=== PATIENT | female | born 1990 | race Hispanic/Latino ===

== ENCOUNTER 2022-02-03 10:59 | Inpatient (IN) | payer BC, OTHER ==
[~2022-02-03] VITALS: Ht 157.5 cm; Wt 69.4 kg
[2022-02-03 11:51] LABS: BASOPHILS # (AUTO) 0.1 (0.0-0.1); BASOPHILS % 0.8 % (0.0-1.0); EOSINOPHILS # (AUTO) 0.1 (0.0-0.4); EOSINOPHILS % 1.1 % (0.0-6.0); HEMATOCRIT 45.1 % (34.2-44.1); HEMOGLOBIN 15.8 g/dL (12.0-16.0); LYMPHOCYTES # (AUTO) 3.3 (1.0-3.2); LYMPHOCYTES % 31.4 % (18.0-39.1); MEAN CORPUSCULAR HEMOGLOBIN 31.6 pg (28-32); MEAN CORPUSCULAR VOLUME 90.2 fL (81-99); MONOCYTES # (AUTO) 0.7 (0.2-0.8); MONOCYTES % 6.6 % (4.4-11.3); NEUTROPHILS # (AUTO) 6.4 (2.1-6.9); NEUTROPHILS % 59.9 % (38.7-80.0); PLATELET COUNT 483 x10e3/uL (140-360); RED CELL DISTRIBUTION WIDTH 11.8 % (11.7-14.4)
[2022-02-03 12:16] LABS: ALANINE AMINOTRANSFERASE 20 IU/L (0-55); ALBUMIN 4.7 g/dL (3.5-5.0); ALBUMIN/GLOBULIN RATIO 1.2 (0.8-2.0); ALKALINE PHOSPHATASE 63 IU/L (40-150); ANION GAP 16.4 mmol/L (8-16); BLOOD UREA NITROGEN 7 mg/dL (7-26); BUN/CREATININE RATIO 9 (6-25); CALCIUM 9.3 mg/dL (8.4-10.2); CARBON DIOXIDE 23 mmol/L (22-29); CHLORIDE 105 mmol/L (98-107); CREATINE KINASE 72 IU/L (29-168); CREATININE, SERUM 0.82 mg/dL (0.57-1.11); GLUCOSE 119 mg/dL (74-118); POTASSIUM 3.4 mmol/L (3.5-5.1); SODIUM 141 mmol/L (136-145)
[2022-02-03] MEDS ORDERED: IOPAMIDOL 370 MG/ML 100 ML INFUS..BTL INJ ONE (13:02)
[2022-02-03 13:31] LABS: COLOR,URINE YELLOW (YELLOW)
[2022-02-03 13:32] LABS: CLARITY,URINE CLEAR (CLEAR); KETONES,URINE NEGATIVE (NEGATIVE); LEUKOCYTE ESTERASE ,URINE NEGATIVE (NEGATIVE); NITRITE,URINE NEGATIVE (NEGATIVE); PROTEIN,URINE DIPSTICK NEGATIVE (NEGATIVE); URINE UROBILINOGEN 0.2 mg/dL (0.2 - 1)
[2022-02-03 13:35] LABS: BACTERIA,URINE MODERATE /HPF; EPITHELIAL CELLS,URINE MODERATE /LPF; RBC,URINE 0-5 /HPF (0-5); WBC,URINE (MAN) 0-5 /HPF (0-5)
[2022-02-03 17:00] VITALS: BP 115/66
[2022-02-03] MEDS ORDERED: CHLORHEXIDINE473 ML (17:05)
[2022-02-03] MEDS: SODIUM CHLORIDE 0.9% 1000ML 1,000 ML IV SCH ×2 (18:18→22:00)
[2022-02-03] MEDS ORDERED: ONDANSETRON HCL INJ 2MG/ML 2ML 2 MG/ML VIAL IV PRN (19:30)
[2022-02-03] MEDS ORDERED: METOPROLOL TARTRATE INJ 1 MG/ML VIAL IV PRN (19:30)
[2022-02-03] MEDS ORDERED: ACETAMIN/BUTALBITAL/CAFFEINE TAB PO ONE (19:50)
[2022-02-03 20:00] VITALS: BP 119/72
[2022-02-03] MEDS ORDERED: POTASSIUM CHLORIDE 20 MEQ TAB CR PO ONE (20:00)
[2022-02-03 23:10] VITALS: BP 119/72
[2022-02-04] VITALS (9 sets, daily range): BP systolic 106–130; BP diastolic 61–82
[2022-02-04 04:52] LABS: BASOPHILS # (AUTO) 0.1 (0.0-0.1); BASOPHILS % 0.9 % (0.0-1.0); EOSINOPHILS # (AUTO) 0.1 (0.0-0.4); EOSINOPHILS % 1.4 % (0.0-6.0); HEMATOCRIT 42.2 % (34.2-44.1); HEMOGLOBIN 13.7 g/dL (12.0-16.0); LYMPHOCYTES # (AUTO) 2.6 (1.0-3.2); LYMPHOCYTES % 29.9 % (18.0-39.1); MEAN CORPUSCULAR HEMOGLOBIN 31.5 pg (28-32); MEAN CORPUSCULAR HGB CONC 32.5 g/dL (31-35); MONOCYTES # (AUTO) 0.8 (0.2-0.8); MONOCYTES % 8.9 % (4.4-11.3); NEUTROPHILS # (AUTO) 5.1 (2.1-6.9); NEUTROPHILS % 58.7 % (38.7-80.0); PLATELET COUNT 356 x10e3/uL (140-360); RED BLOOD COUNT 4.35 x10e6/uL (3.6-5.1); RED CELL DISTRIBUTION WIDTH 11.7 % (11.7-14.4)
[2022-02-04 05:10] LABS: ALBUMIN 3.6 g/dL (3.5-5.0); ALBUMIN/GLOBULIN RATIO 1.3 (0.8-2.0); ANION GAP 13.1 mmol/L (8-16); CALCIUM 8.2 mg/dL (8.4-10.2); CREATININE, SERUM 0.77 mg/dL (0.57-1.11); POTASSIUM 4.1 mmol/L (3.5-5.1)
[2022-02-04 05:25] LABS: CHOL/HDL RATIO 2.7 (3.0-3.6); MAGNESIUM 1.9 MG/DL (1.3-2.1); PHOSPHORUS 3.3 MG/DL (2.3-4.7)
[2022-02-04 05:45] LABS: THYROID STIMULATING HORMONE 1.5 uIU/mL (0.350-4.940)
[2022-02-04] MEDS: SODIUM CHLORIDE 0.9% 1000ML 1,000 ML IV SCH ×3 (06:00→19:46)
[2022-02-04] MEDS: ACETAMIN/BUTALBITAL/CAFFEINE TAB PO PRN (08:02)
[2022-02-04] MEDS: FAMOTIDINE 20 MG TAB PO SCH ×2 (08:02→17:07)
[2022-02-04] MEDS: DOCUSATE SODIUM 100 MG CAP PO SCH ×2 (09:00→17:00)
[2022-02-04] MEDS: CHLORHEXIDINE GLUCONATE 0.12% SOLN 473 ML BTL MT SCH ×2 (09:00→18:47)
[2022-02-04 11:23] LABS: INR 0.96; PROTHROMBIN TIME 13.7 seconds (11.9-14.5)
[2022-02-04] MEDS ORDERED: GADOBENATE DIMEGLUMINE 1 ML IV ONE (13:42)
[2022-02-04 15:51] LABS: APPEARANCE,CSF CLEAR (CLEAR); COLOR,CSF COLORLESS (COLORLESS); TUBE NUMBER 3; WHITE BLOOD CELL,CSF 1 cells/uL (0-5)
[2022-02-04] MEDS: ACETAMINOPHEN/CODEINE 300MG - 30MG TAB PO PRN (17:08)
[2022-02-04] MEDS: ONDANSETRON HCL 4 MG ORAL DISINTEGRATING TAB PO PRN (17:14)
[2022-02-05] VITALS (9 sets, daily range): BP systolic 93–131; BP diastolic 55–76
[2022-02-05] MEDS: ONDANSETRON HCL 4 MG ORAL DISINTEGRATING TAB PO PRN ×2 (06:29→17:36)
[2022-02-05] MEDS: ACETAMIN/BUTALBITAL/CAFFEINE TAB PO PRN ×2 (06:29→12:52)
[2022-02-05] MEDS: SODIUM CHLORIDE 0.9% 1000ML 1,000 ML IV SCH ×3 (06:40→14:16)
[2022-02-05] MEDS: FAMOTIDINE 20 MG TAB PO SCH ×2 (08:23→17:36)
[2022-02-05] MEDS: DOCUSATE SODIUM 100 MG CAP PO SCH ×2 (08:23→17:00)
[2022-02-05] MEDS: CHLORHEXIDINE GLUCONATE 0.12% SOLN 473 ML BTL MT SCH ×2 (11:42→17:36)
[2022-02-05] MEDS ORDERED: IOPAMIDOL 370 MG/ML 100 ML INFUS..BTL INJ ONE ×2 (16:53→17:25)
[2022-02-05] MEDS: ACETAMINOPHEN/CODEINE 300MG - 30MG TAB PO PRN (17:36)
[2022-02-05] MEDS: METHYLPREDNISOLONE SOD SUCC 125 MG/2ML VIAL IV SCH (17:37)
[2022-02-05 20:08] LABS: HIV 1&2 AB SCREEN NON-REACTIVE (NONREACTIVE)
[2022-02-05] MEDS: TEMAZEPAM 7.5 MG CAP PO PRN (20:37)
[2022-02-06] VITALS (9 sets, daily range): BP systolic 113–137; BP diastolic 62–86
[2022-02-06] MEDS: METHYLPREDNISOLONE SOD SUCC 125 MG/2ML VIAL IV SCH ×3 (01:37→17:35)
[2022-02-06 06:34] LABS: BASOPHILS % 0.2 % (0.0-1.0); HEMATOCRIT 42.8 % (34.2-44.1); HEMOGLOBIN 14.8 g/dL (12.0-16.0); LYMPHOCYTES # (AUTO) 0.9 (1.0-3.2); LYMPHOCYTES % 8.1 % (18.0-39.1); MEAN CORPUSCULAR HEMOGLOBIN 31.2 pg (28-32); MEAN CORPUSCULAR HGB CONC 34.6 g/dL (31-35); MEAN CORPUSCULAR VOLUME 90.3 fL (81-99); MONOCYTES % 0.2 % (4.4-11.3); NEUTROPHILS # (AUTO) 9.7 (2.1-6.9); NEUTROPHILS % 91.1 % (38.7-80.0); PLATELET COUNT 400 x10e3/uL (140-360); RED BLOOD COUNT 4.74 x10e6/uL (3.6-5.1); RED CELL DISTRIBUTION WIDTH 11.5 % (11.7-14.4)
[2022-02-06 07:11] LABS: ALBUMIN 3.8 g/dL (3.5-5.0); ALBUMIN/GLOBULIN RATIO 1.2 (0.8-2.0); ANION GAP 13.4 mmol/L (8-16); CALCIUM 8.9 mg/dL (8.4-10.2); CREATININE, SERUM 0.69 mg/dL (0.57-1.11); MAGNESIUM 1.6 MG/DL (1.3-2.1); POTASSIUM 3.4 mmol/L (3.5-5.1)
[2022-02-06] MEDS: SODIUM CHLORIDE 0.9% 1000ML 1,000 ML IV SCH ×3 (07:37→13:18)
[2022-02-06] MEDS ORDERED: POTASSIUM CHLORIDE 20 MEQ TAB CR PO ONE ×2 (07:45→10:45)
[2022-02-06] MEDS ORDERED: MAGNESIUM SULFATE 2GM/50ML 50 ML IV ONE (07:45)
[2022-02-06] MEDS: ACETAMINOPHEN/CODEINE 300MG - 30MG TAB PO PRN ×2 (10:16→16:11)
[2022-02-06] MEDS: DOCUSATE SODIUM 100 MG CAP PO SCH ×2 (10:38→17:35)
[2022-02-06] MEDS: CHLORHEXIDINE GLUCONATE 0.12% SOLN 473 ML BTL MT SCH ×2 (10:38→17:35)
[2022-02-06] MEDS: FAMOTIDINE 20 MG TAB PO SCH ×2 (10:39→17:35)
[2022-02-06 12:45] LABS: PLATELET ESTIMATE ADEQUATE; PLATELET MORPHOLOGY COMMENT NORMAL; RBC MORPHOLOGY COMMENT NORMAL
[2022-02-06] MEDS: TEMAZEPAM 7.5 MG CAP PO PRN (21:50)
[2022-02-07] VITALS (7 sets, daily range): BP systolic 110–122; BP diastolic 60–75
[2022-02-07] MEDS: SODIUM CHLORIDE 0.9% 1000ML 1,000 ML IV SCH ×4 (00:01→22:13)
[2022-02-07] MEDS: METHYLPREDNISOLONE SOD SUCC 125 MG/2ML VIAL IV SCH ×4 (00:02→17:45)
[2022-02-07] MEDS: ACETAMINOPHEN/CODEINE 300MG - 30MG TAB PO PRN ×3 (00:22→18:40)
[2022-02-07 05:12] LABS: BASOPHILS % 0.1 % (0.0-1.0); HEMATOCRIT 43.9 % (34.2-44.1); HEMOGLOBIN 14.8 g/dL (12.0-16.0); LYMPHOCYTES # (AUTO) 1.5 (1.0-3.2); LYMPHOCYTES % 5.6 % (18.0-39.1); MEAN CORPUSCULAR HGB CONC 33.7 g/dL (31-35); MONOCYTES # (AUTO) 0.5 (0.2-0.8); MONOCYTES % 1.7 % (4.4-11.3); NEUTROPHILS # (AUTO) 24.9 (2.1-6.9); NEUTROPHILS % 91.9 % (38.7-80.0); PLATELET COUNT 428 x10e3/uL (140-360); RED BLOOD COUNT 4.62 x10e6/uL (3.6-5.1); RED CELL DISTRIBUTION WIDTH 11.7 % (11.7-14.4)
[2022-02-07 05:31] LABS: ANION GAP 11.7 mmol/L (8-16); CALCIUM 8.9 mg/dL (8.4-10.2); CREATININE, SERUM 0.73 mg/dL (0.57-1.11); PHOSPHORUS 3.1 MG/DL (2.3-4.7); POTASSIUM 3.7 mmol/L (3.5-5.1)
[2022-02-07] MEDS: FAMOTIDINE 20 MG TAB PO SCH ×2 (09:00→16:58)
[2022-02-07] MEDS: DOCUSATE SODIUM 100 MG CAP PO SCH ×2 (09:00→16:58)
[2022-02-07] MEDS: CHLORHEXIDINE GLUCONATE 0.12% SOLN 473 ML BTL MT SCH ×2 (09:00→16:58)
[2022-02-07] MEDS ORDERED: POLYETHYLENE GLYCOL 3350 17 GM PACK PO NR (12:00)
[2022-02-07 13:21] LABS: BAND NEUTROPHILS % (MANUAL) 3 %; LYMPHOCYTES % (MANUAL) 4 % (19-48); MONOCYTES % (MANUAL) 1 % (3.4-9.0); NEUTROPHILS % (MANUAL) 92 % (40-74); PLATELET ESTIMATE SLIGHTLY INCREASED; PLATELET MORPHOLOGY COMMENT NORMAL
[2022-02-07 13:22] LABS: HYPOCHROMASIA SLIGHT
[2022-02-07] MEDS: ACETAMINOPHEN 325 MG TAB PO PRN (14:25)
[2022-02-07] MEDS: TEMAZEPAM 7.5 MG CAP PO PRN (22:11)
[2022-02-08] VITALS (8 sets, daily range): BP systolic 120–142; BP diastolic 70–82
[2022-02-08] MEDS: METHYLPREDNISOLONE SOD SUCC 125 MG/2ML VIAL IV SCH ×4 (00:12→17:30)
[2022-02-08] MEDS: ACETAMINOPHEN 325 MG TAB PO PRN (06:08)
[2022-02-08] MEDS: SODIUM CHLORIDE 0.9% 1000ML 1,000 ML IV SCH ×2 (06:11→14:00)
[2022-02-08 06:35] LABS: ANION GAP 14.1 mmol/L (8-16); CALCIUM 7.9 mg/dL (8.4-10.2); CREATININE, SERUM 0.68 mg/dL (0.57-1.11); POTASSIUM 4.1 mmol/L (3.5-5.1)
[2022-02-08 07:27] LABS: BASOPHILS % 0.1 % (0.0-1.0); HEMATOCRIT 42.1 % (34.2-44.1); LYMPHOCYTES # (AUTO) 1.2 (1.0-3.2); MEAN CORPUSCULAR HEMOGLOBIN 31.4 pg (28-32); MEAN CORPUSCULAR HGB CONC 32.8 g/dL (31-35); MEAN CORPUSCULAR VOLUME 95.9 fL (81-99); MONOCYTES # (AUTO) 0.3 (0.2-0.8); MONOCYTES % 1.6 % (4.4-11.3); NEUTROPHILS # (AUTO) 15.8 (2.1-6.9); NEUTROPHILS % 90.8 % (38.7-80.0); RED BLOOD COUNT 4.39 x10e6/uL (3.6-5.1); RED CELL DISTRIBUTION WIDTH 11.9 % (11.7-14.4)
[2022-02-08 07:30] LABS: HEMOGLOBIN 13.8 g/dL (12.0-16.0); PLATELET COUNT 396 x10e3/uL (140-360)
[2022-02-08] MEDS: FAMOTIDINE 20 MG TAB PO SCH ×2 (08:32→16:35)
[2022-02-08] MEDS: DOCUSATE SODIUM 100 MG CAP PO SCH ×2 (08:32→16:35)
[2022-02-08] MEDS: CHLORHEXIDINE GLUCONATE 0.12% SOLN 473 ML BTL MT SCH ×2 (08:33→16:42)
[2022-02-08] MEDS: POLYETHYLENE GLYCOL 3350 17 GM PACK PO PRN (08:43)
[2022-02-08 09:51] LABS: NEUTROPHILS % (MANUAL) 94 % (40-74)
[2022-02-08 09:52] LABS: LYMPHOCYTES % (MANUAL) 3 % (19-48)
[2022-02-08] MEDS: ACETAMINOPHEN/CODEINE 300MG - 30MG TAB PO PRN ×2 (10:24→16:46)
[2022-02-08] MEDS ORDERED: GADOBENATE DIMEGLUMINE 1 ML IV ONE (14:39)
[2022-02-08 16:10] LABS: IGG/ALB RATIO CSF 0.15 (0.00-0.25)
[2022-02-08 16:39] LABS: CSF/SERUM ALBUMIN INDEX 4 (0-8)
[2022-02-09] VITALS: BP 141/75
[2022-02-09] MEDS: METHYLPREDNISOLONE SOD SUCC 125 MG/2ML VIAL IV SCH ×3 (00:30→11:50)
[2022-02-09] MEDS: POLYETHYLENE GLYCOL 3350 17 GM PACK PO PRN (00:37)
[2022-02-09] MEDS: SODIUM CHLORIDE 0.9% 1000ML 1,000 ML IV SCH ×3 (03:05→11:40)
[2022-02-09] MEDS: ACETAMIN/BUTALBITAL/CAFFEINE TAB PO PRN ×2 (03:08→11:50)
[2022-02-09 04:20] VITALS: BP 141/78
[2022-02-09 06:25] LABS: BASOPHILS % 0.1 % (0.0-1.0); HEMATOCRIT 35.7 % (34.2-44.1); HEMOGLOBIN 13.2 g/dL (12.0-16.0); LYMPHOCYTES # (AUTO) 0.9 (1.0-3.2); LYMPHOCYTES % 8.2 % (18.0-39.1); MEAN CORPUSCULAR HEMOGLOBIN 34.8 pg (28-32); MEAN CORPUSCULAR VOLUME 94.2 fL (81-99); MONOCYTES # (AUTO) 0.2 (0.2-0.8); MONOCYTES % 2.2 % (4.4-11.3); NEUTROPHILS # (AUTO) 9.7 (2.1-6.9); NEUTROPHILS % 88.9 % (38.7-80.0); PLATELET COUNT 304 x10e3/uL (140-360); RED BLOOD COUNT 3.79 x10e6/uL (3.6-5.1); RED CELL DISTRIBUTION WIDTH 13.6 % (11.7-14.4)
[2022-02-09 06:55] LABS: ANION GAP 12.8 mmol/L (8-16); CALCIUM 8.3 mg/dL (8.4-10.2); CREATININE, SERUM 0.71 mg/dL (0.57-1.11); POTASSIUM 3.8 mmol/L (3.5-5.1)
[2022-02-09] MEDS: FAMOTIDINE 20 MG TAB PO SCH ×2 (07:30→16:21)
[2022-02-09 09:00] VITALS: BP 141/78
[2022-02-09] MEDS: DOCUSATE SODIUM 100 MG CAP PO SCH ×2 (09:00→16:21)
[2022-02-09] MEDS: CHLORHEXIDINE GLUCONATE 0.12% SOLN 473 ML BTL MT SCH ×2 (09:17→17:00)
[2022-02-09 09:54] VITALS: BP 142/74
[2022-02-09 12:45] VITALS: BP 131/75
[2022-02-09] MEDS: ACETAMINOPHEN 325 MG TAB PO PRN (15:50)
[2022-02-09 17:06] VITALS: BP 149/77
[2022-02-09] MEDS ORDERED: Acetamin/Butalbital/Caffeine PO (18:26)
[2022-02-09] MEDS ORDERED: ONDANSETRON ODT4 MG PO (18:26)
[2022-02-09] MEDS ORDERED: FAMOTIDINE20 MG PO (18:26)
[2022-02-09] MEDS ORDERED: PREDNISONE20 MG PO (18:26)
[2022-02-09] MEDS ORDERED: Docusate Sodium PO (18:26)
[2022-02-09] MEDS ORDERED: MIRALAX17 GM PO (18:26)
[2022-02-09] MEDS ORDERED: RISPERDAL1 MG PO (18:26)
[2022-02-09] MEDS ORDERED: SODIUM CHLORIDE50 M1 IV (18:26)
[2022-02-09] MEDS ORDERED: ACETAMINOPHEN325 M1 PO (18:26)
[2022-02-09] MEDS ORDERED: RISPERIDONE 1 MG TAB PO SCH (21:00)
[2022-02-10] MEDS ORDERED: PREDNISONE 20 MG TAB PO SCH (09:00)
== END 2022-02-09 19:15 | disposition short-term general hospital (02) | DRG 57 ==
LOC: ER 11:21 → ERHOLD 13:57 → MED/SURG2 16:53 → OBSVTOIN 02-05 12:30
PROVIDERS: ADMIT Internal Medicine; ATTEND Internal Medicine
PROC: 009U3ZX Drainage of Spinal Canal, Percutaneous Approach, Diagnostic (ICD-10-PCS; principal; 2022-02-04)
PROC: B01B1ZZ Fluoroscopy of Spinal Cord using Low Osmolar Contrast (ICD-10-PCS; 2022-02-04)
DX: G81.94 Hemiplegia, unspecified affecting left nondominant side (principal); F44.9 Dissociative and conversion disorder, unspecified; D75.839 Thrombocytosis, unspecified; E87.6 Hypokalemia; Z80.0 Family history of malignant neoplasm of digestive organs; Z80.43 Family history of malignant neoplasm of testis; Z20.822 Contact with and (suspected) exposure to COVID-19; R20.2 Paresthesia of skin; Z82.49 Family history of ischemic heart disease and other diseases of the circulatory system; Z84.89 Family history of other specified conditions; E83.42 Hypomagnesemia; Z87.898 Personal history of other specified conditions
CPT/HCPCS: 0223U; 36415; 62328; 70496; 70498; 70551; 71045; 72156; 72157; 72158; 74470; 80048; 80053; 80061; 81001; 82040; 82550; 82553; 82607; 82784; 82945; 83036; 83516; 83519; 83735; 83873; 83916; 84100; 84157; 84207; 84443; 84484; 84702; 85025; 85597; 85610; 85613; 85651; 85730; 86021; 86039; 86160; 86225; 86235; 86255; 86256; 86376; 86592; 86789; 87390; 87476; 89051; 93005; 93880; 93971; 94799; 95819; 96361; 99251; 99284; G0378; G0433; G0435; J2930; J7030; Q0162; Q9967

== ENCOUNTER → 2022-02-26 | Outpatient (CLI) | payer OTHER ==
[~2022-02-26] MED LIST: ACETAMINOPHEN325 M1 PO; Acetamin/Butalbital/Caffeine PO; CHLORHEXIDINE473 ML; Docusate Sodium PO; FAMOTIDINE20 MG PO; MIRALAX17 GM PO; ONDANSETRON ODT4 MG PO; PREDNISONE20 MG PO; RISPERDAL1 MG PO; SODIUM CHLORIDE50 M1 IV
== END ==
LOC: MERGE 02-01 10:52 → US 12:12
PROVIDERS: ATTEND Family Medicine
DX: R59.0 Localized enlarged lymph nodes (principal)
CPT/HCPCS: 10005; 38505; 76942; 88304

== ENCOUNTER → 2024-01-08 | Emergency (ER) | payer OTHER ==
[~2024-01-08] VITALS: Ht 157.5 cm; Wt 69.4 kg
[~2024-01-08] MED LIST changes: +AZITHROMYCIN250 MG PO; +VENTOLIN HFA18 GM INH
[2024-01-08 17:33] VITALS: PULSE 94; RESP 15; TEMP 99.1; O2SAT 100
[2024-01-08] MEDS: ACETAMINOPHEN 325 MG TAB PO ONE (17:48)
[2024-01-08] MEDS: IBUPROFEN 600 MG TAB PO STA (17:48)
[2024-01-08 18:20] LABS: INFLUENZAE A&B ANTIGEN (RAPID) NEGATIVE (NEGATIVE); RESPIRATORY SYNC. VIRUS NEGATIVE (NEGATIVE); STREPTOCOCCUS GRP A ANTIGEN NEGATIVE (NEGATIVE)
== END | disposition home or self-care (01) ==
LOC: ER 17:28
DX: R50.9 Fever, unspecified (principal); J06.9 Acute upper respiratory infection, unspecified; H66.92 Otitis media, unspecified, left ear; Z11.52 Encounter for screening for COVID-19
CPT/HCPCS: 0223U; 36415; 83518; 87070; 87400; 87420; 99283